=== PATIENT | female | born 1990 | race Caucasian/White ===

== ENCOUNTER 2018-07-05 13:01 | Outpatient (CLI) | payer OTHER | END 2018-07-05 13:53 | disposition HB | LOC: LAB 13:01 | DX: J11.1 Influenza due to unidentified influenza virus with other respiratory manifestations (principal); J20.0 Acute bronchitis due to Mycoplasma pneumoniae ==

== ENCOUNTER 2019-05-27 12:19 | Outpatient (CLI) | payer OTHER | END 2019-05-27 12:31 | disposition home or self-care (01) | LOC: LAB 12:19 | DX: J11.1 Influenza due to unidentified influenza virus with other respiratory manifestations (principal); J20.0 Acute bronchitis due to Mycoplasma pneumoniae ==

== ENCOUNTER 2021-03-25 13:30 | Outpatient (CLI) | payer OTHER | END 2021-03-25 15:15 | disposition home or self-care (01) | LOC: PRENATAL 13:30 | PROVIDERS: ATTEND Obstetrics & Gynecology Maternal & Fetal Medicine | DX: O35.0XX1 Maternal care for (suspected) central nervous system malformation in fetus, fetus 1 (principal); O35.3XX1 Maternal care for (suspected) damage to fetus from viral disease in mother, fetus 1; O98.512 Other viral diseases complicating pregnancy, second trimester; Z36.89 Encounter for other specified antenatal screening; Z3A.23 23 weeks gestation of pregnancy ==

== ENCOUNTER 2021-04-13 22:57 | Outpatient (CLI) | payer OTHER ==
[2021-04-13] MEDS ORDERED: PRENATAL TABLE1 EAC1 PO (23:00)
== END 2021-04-14 11:00 | disposition home or self-care (01) ==
LOC: OBS/DEL 22:57
PROVIDERS: ATTEND Obstetrics & Gynecology
DX: O26.892 Other specified pregnancy related conditions, second trimester (principal); R51.9 Headache, unspecified; H53.8 Other visual disturbances; Z3A.25 25 weeks gestation of pregnancy; Z20.822 Contact with and (suspected) exposure to COVID-19

== ENCOUNTER 2021-06-01 13:59 | Outpatient (CLI) | payer OTHER ==
[~2021-06-01 13:59] MED LIST: PRENATAL TABLE1 EAC1 PO
== END 2021-06-01 14:35 | disposition home or self-care (01) ==
LOC: PRENATAL 13:59
PROVIDERS: ATTEND Obstetrics & Gynecology Maternal & Fetal Medicine
DX: O26.843 Uterine size-date discrepancy, third trimester (principal); O35.0XX1 Maternal care for (suspected) central nervous system malformation in fetus, fetus 1; O36.8131 Decreased fetal movements, third trimester, fetus 1; Z36.89 Encounter for other specified antenatal screening; Z3A.32 32 weeks gestation of pregnancy

== ENCOUNTER 2021-07-17 12:16 | Inpatient (IN) | payer OTHER ==
[~2021-07-17] VITALS: Ht 162.6 cm; Wt 98.9 kg
[2021-07-20] MEDS ORDERED: Tylenol #3 PO (08:56)
== END 2021-07-20 10:57 | disposition home or self-care (01) | DRG 788 ==
LOC: LDR 12:16 → OB/GYN 12:16 → LDR 17:23 → OB/GYN 22:52
PROVIDERS: ADMIT Obstetrics & Gynecology; ATTEND Obstetrics & Gynecology
PROC: 4A1HXCZ Monitoring of Products of Conception, Cardiac Rate, External Approach (ICD-10-PCS; 2021-07-17)
PROC: 10D00Z1 Extraction of Products of Conception, Low, Open Approach (ICD-10-PCS; principal; 2021-07-17 23:00)
DX: O62.1 Secondary uterine inertia (principal); Z20.822 Contact with and (suspected) exposure to COVID-19; Z3A.39 39 weeks gestation of pregnancy; Z37.0 Single live birth; O13.3 Gestational [pregnancy-induced] hypertension without significant proteinuria, third trimester

== ENCOUNTER 2021-09-25 22:43 | Emergency (ER) | payer OTHER ==
[~2021-09-25] VITALS: Ht 162.6 cm; Wt 86.2 kg
[~2021-09-25 22:43] MED LIST changes: +Tylenol #3 PO
== END 2021-09-26 00:20 | disposition home or self-care (01) ==
LOC: ER 22:43
DX: T14.8XXA Other injury of unspecified body region, initial encounter (principal); V49.9XXA Car occupant (driver) (passenger) injured in unspecified traffic accident, initial encounter; Y93.9 Activity, unspecified; Y92.413 State road as the place of occurrence of the external cause; Y99.9 Unspecified external cause status; M62.838 Other muscle spasm; Z88.2 Allergy status to sulfonamides

== ENCOUNTER → 2021-12-30 | Emergency (ER) | payer OTHER ==
[~2021-12-30] VITALS: Ht 162.6 cm; Wt 86.2 kg
[~2021-12-30] MED LIST changes: +OBSTETRIX ONE 38-1-2
== END | disposition home or self-care (01) ==
LOC: ER 13:45
DX: B34.8 Other viral infections of unspecified site (principal)